=== PATIENT | male | born 1985 | race Asian ===

== ENCOUNTER 2019-02-09 12:36 | Emergency (ER) | payer MEDICAID ==
[~2019-02-09] VITALS: Ht 170.2 cm; Wt 104.3 kg
[2019-02-09 14:16] VITALS: BP 141/93
== END 2019-02-09 14:47 | disposition home or self-care (01) ==
LOC: ER 12:42
DX: M24.411 Recurrent dislocation, right shoulder (principal)
CPT/HCPCS: 73030